=== PATIENT | male | born 1975 | race African-American/Black ===

== ENCOUNTER 2019-05-27 01:06 | Inpatient (IN) | payer MEDICAID ==
[~2019-05-27] VITALS: Ht 160 cm; Wt 63.4 kg
[2019-05-27] MEDS ORDERED: PLEASE ENTER ALLERGIES MC SCH (01:30)
[2019-05-27] MEDS ORDERED: MAALOX/HYOSCYAMINE/LIDOCAINE 45 ML BTL PO ONE (01:30)
--- NOTE | 2019-05-27 01:41 | NUR ---
[facility] CALLED [id number]
--- NOTE | 2019-05-27 01:45 | NUR ---
SECURITY CALLED [employer] AND THEY ARE ON THEIR WAY.
[2019-05-27] MEDS ORDERED: NITROGLYCERIN 0.4 MG BOTTLE (25 TABS) SL PRN ×2 (02:00→03:00)
--- NOTE | 2019-05-27 02:04 | NUR ---
PT BIBA FOR CP THAT RADIATES TO BACK. C N/V YESTERDAY. NONE TODAY. PT HAS HX OF GERD, STATES IT FEELS SIMILIAR. RATES EPIGASTRIC PAIN 03/11. SKIN W/D.
[2019-05-27] MEDS ORDERED: LEVE250T28 PO (02:10)
[2019-05-27] MEDS ORDERED: DIVA125T2 PO (02:10)
[2019-05-27] MEDS ORDERED: INSU100I42 SQ (02:12)
[2019-05-27 02:13] LABS: BASOPHILS # (AUTO) 0.04 x10^3/uL (0-0.1); BASOPHILS % (AUTO) 1 % (0-1); EOSINOPHILS % (AUTO) 0 % (1-7); LYMPHOCYTES # (AUTO) 2.27 x10^3/uL (1-3.4); LYMPHOCYTES % (AUTO) 44 % (22-44); MD NO; MEAN CORPUSCULAR HEMOGLOBIN 34.2 pg (27.5-34.5); MEAN CORPUSCULAR HGB CONC 32.3 g/dL (33.2-36.2); MEAN CORPUSCULAR VOLUME 105.8 fL (81-97); MEAN PLATELET VOLUME 8.3 fL (7.4-10.4); MONOCYTES # (AUTO) 0.38 x10^3/uL (0.2-0.8); MONOCYTES % (AUTO) 7 % (2-9); NEUTROPHILS # (AUTO) 2.51 x10^3/uL (1.8-6.8); NEUTROPHILS % (AUTO) 48 % (42-75); PLATELET COUNT 200 x10^3/uL (130-400); RED BLOOD COUNT 5.07 x10^6/uL (4.38-5.82); RED CELL DISTRIBUTION WIDTH 12.9 % (9.4-14.8)
[2019-05-27] MEDS ORDERED: INSU100I34 SQ (02:14)
[2019-05-27 02:15] LABS: ALANINE AMINOTRANSFERASE 28 U/L (12-78); ALBUMIN 3.9 g/dL (3.4-5.0); ANION GAP 12 mmol/L (5-15); CALCIUM 10.4 mg/dL (8.5-10.1); CHLORIDE 96 mmol/L (98-107); CREATININE 1.31 mg/dL (0.7-1.3)
[2019-05-27] MEDS ORDERED: CARB200T PO (02:16)
--- NOTE | 2019-05-27 02:16 | NUR ---
INCOMPLETE MED REC COMPLETED. PT UNSURE OF DOSAGES. ATTEMPTING SECOND IV. CARDS AT BS. PT AWARE OF PLAN FOR [employer]. PT VERBALIZES UNDERSTANDING.
[2019-05-27] MEDS ORDERED: MIDAZOLAM 1 MG/ML, 5ML ONE (02:17)
[2019-05-27] MEDS ORDERED: FENTANYL PF 100 MCG/2ML ONE (02:17)
[2019-05-27] MEDS ORDERED: VERAPAMIL 2.5 MG/ML, 2ML ONE (02:17)
[2019-05-27] MEDS ORDERED: TICAGRELOR 90 MG TABLET ONE (02:17)
[2019-05-27] MEDS ORDERED: BIVALIRUDIN 250 MG ONE (02:18)
[2019-05-27] MEDS ORDERED: LIDOCAINE 2%, 20ML ONE (02:18)
[2019-05-27] MEDS ORDERED: NITROGLYCERIN 5 MG/ML, 10ML ONE (02:18)
[2019-05-27] MEDS ORDERED: HEPARIN 1,000 UNITS/ML, 10ML ONE (02:18)
[2019-05-27 02:20] LABS: ALKALINE PHOSPHATASE 106 U/L (45-117); BILIRUBIN,TOTAL 0.5 mg/dL (0.2-1.0); TOTAL PROTEIN 8.1 g/dL (6.4-8.2); TROPONIN I < 0.015 ng/mL (0.000-0.045)
--- NOTE | 2019-05-27 02:22 | NUR ---
PT GIVEN 1 NTG SL IN ER S RELIEF. PT GIVEN 4 (81MG) ASA ENROUTE.
--- NOTE | 2019-05-27 02:23 | NUR ---
[employer] READY
--- NOTE | 2019-05-27 02:35 | NUR ---
PT TRANSPORTED TO [employer], REPORT AT BS.
[2019-05-27] MEDS ORDERED: ONDANSETRON ODT 4 MG PO PRN (03:00)
[2019-05-27] MEDS ORDERED: PROMETHAZINE 25 MG/ML, 1ML IM PRN (03:00)
[2019-05-27] MEDS ORDERED: ACETAMINOPHEN 325 MG TABLET PO PRN (03:00)
[2019-05-27] MEDS ORDERED: POLYETHYLENE GLYCOL 17 GM PACKET PO PRN (03:00)
[2019-05-27] MEDS ORDERED: DOCUSATE 100 MG CAPSULE PO PRN (03:00)
[2019-05-27] MEDS: NICOTINE 7 MG/24 HR PATCH.TD24 TD SCH (03:00)
[2019-05-27] MEDS ORDERED: hydrALAzine 20 MG/ML, 1ML IVPush PRN (03:00)
[2019-05-27] MEDS ORDERED: DIVALPROEX 125 MG TABLET.DR PO SCH (03:00)
[2019-05-27] MEDS ORDERED: ONDANSETRON 2MG/ML, 2ML IVPush PRN (03:00)
[2019-05-27] MEDS ORDERED: BISACODYL 10 MG SUPP PR PRN (03:00)
[2019-05-27 03:40] LABS: FREE T4 (FREE THYROXINE) 0.72 ng/dL (0.76-1.46)
[2019-05-27 03:44] LABS: HEMOGLOBIN A1C 9.1 % (4.2-6.3)
[2019-05-27 03:49] VITALS: BP 115/78
[2019-05-27] MEDS ORDERED: MAALOX/HYOSCYAMINE/LIDOCAINE 45 ML BTL PO SCH (04:00)
[2019-05-27] MEDS: SODIUM CHLORIDE 0.9% 1,000 ML IV SCH ×2 (05:12→15:48)
[2019-05-27] MEDS: OXYcodone IR 5MG TABLET PO PRN ×4 (05:32→22:17)
[2019-05-27] MEDS: PANTOPRAZOLE 40 MG IV IVPush SCH ×2 (05:33→16:46)
[2019-05-27 05:44] LABS: TROPONIN I < 0.015 ng/mL (0.000-0.045)
[2019-05-27] MEDS ORDERED: ASPIRIN 325 MG TABLET EC PO SCH (06:00)
[2019-05-27 07:14] VITALS: BP 116/75
[2019-05-27 08:06] LABS: TROPONIN I < 0.015 ng/mL (0.000-0.045)
[2019-05-27] MEDS: LEVETIRACETAM 500 MG TABLET PO SCH ×2 (09:01→21:08)
[2019-05-27] MEDS: CARBAMAZEPINE 200 MG TABLET PO SCH (09:01)
[2019-05-27] MEDS: morphine SULFATE 10 MG/ML, 1ML IVPush PRN ×2 (09:52→13:00)
[2019-05-27 12:29] VITALS: BP 124/77
[2019-05-27] MEDS ORDERED: OMNIPAQUE 350 MG/ML, 100ML BOTTLE ONE (13:12)
[2019-05-27] MEDS ORDERED: GLUCAGON 1 MG IM PRN (13:30)
[2019-05-27] MEDS ORDERED: DEXTROSE 50%, 50ML SYRINGE IVPush PRN (13:30)
[2019-05-27] MEDS ORDERED: DEXTROSE 4 GM TAB.CHEW PO PRN (13:30)
[2019-05-27 14:42] LABS: ANION GAP 29 mmol/L (5-15); CALCIUM 9.9 mg/dL (8.5-10.1); CHLORIDE 96 mmol/L (98-107); CREATININE 1.59 mg/dL (0.7-1.3)
[2019-05-27 14:45] LABS: O2 FLOW ROOM AIR L/min
[2019-05-27] MEDS ORDERED: REGULAR INSULIN 62.5 UNITS in SODIUM CHLORIDE 0.9% 249.375 ML IV PRN (15:00)
[2019-05-27] MEDS ORDERED: SODIUM CHLORIDE 0.9% 1,000ML IVBOLUS ONE (15:00)
[2019-05-27 15:14] LABS: ACETONE, SERUM Large (80mg/dL) mg/dL (Negative)
[2019-05-27 15:16] LABS: MEAN CORPUSCULAR HEMOGLOBIN 35.3 pg (27.5-34.5); MEAN CORPUSCULAR HGB CONC 32.3 g/dL (33.2-36.2); MEAN CORPUSCULAR VOLUME 109.1 fL (81-97); MEAN PLATELET VOLUME 9.3 fL (7.4-10.4); PLATELET COUNT 206 x10^3/uL (130-400); RED CELL DISTRIBUTION WIDTH 13.5 % (9.4-14.8)
[2019-05-27 15:18] LABS: BASOPHILS # (AUTO) 0.04 x10^3/uL (0-0.1); BASOPHILS % (AUTO) 0 % (0-1); EOSINOPHILS % (AUTO) 0 % (1-7); LYMPHOCYTES # (AUTO) 1.72 x10^3/uL (1-3.4); LYMPHOCYTES % (AUTO) 10 % (22-44); MD SCAN; MONOCYTES # (AUTO) 1.51 x10^3/uL (0.2-0.8); MONOCYTES % (AUTO) 9 % (2-9); NEUTROPHILS # (AUTO) 14.61 x10^3/uL (1.8-6.8); NEUTROPHILS % (AUTO) 82 % (42-75)
[2019-05-27 15:52] LABS: RAPID INFLUENZA A Negative (Negative); RAPID INFLUENZA B Negative (Negative)
[2019-05-27] MEDS ORDERED: SODIUM CHLORIDE 0.9% 1,000 ML IV SCH (16:00)
[2019-05-27] MEDS ORDERED: CEFTRIAXONE PMX 1GM/50ML 50 ML IV SCH (16:00)
[2019-05-27] MEDS ORDERED: INSULIN LISPRO 100 UNITS/ML, PEN SQ-INSULIN SCH (16:00)
[2019-05-27] MEDS: DOXYCYCLINE 100 MG in DEXTROSE 5% 250 ML IV SCH (17:24)
[2019-05-27] MEDS: D5%-0.45NACL+KCL 20MEQ 1,000 ML IV SCH (19:41)
[2019-05-27 20:43] LABS: ANION GAP 15 mmol/L (5-15); CALCIUM 8.5 mg/dL (8.5-10.1); CHLORIDE 108 mmol/L (98-107)
[2019-05-27] MEDS ORDERED: SODIUM CHLORIDE FLUSH 10ML SYR IVF SCH (21:00)
[2019-05-27 22:17] LABS: MICROSCOPIC NOT IND
[2019-05-27 22:18] LABS: AMPHETAMINE SCREEN, URINE Negative (Negative); BARBITURATE SCREEN, URINE Negative (Negative); BENZODIAZEPINE SCREEN, URINE Positive (Negative); CANNABINOID SCREEN, URINE Negative (Negative); COCAINE SCREEN, URINE Negative (Negative); METHADONE SCREEN, URINE Negative (Negative); OPIATE SCREEN, URINE Positive (Negative)
[2019-05-27 22:27] LABS: CULTURE INDICATED? NO
[2019-05-28 00:54] LABS: ANION GAP 5 mmol/L (5-15); CALCIUM 8.2 mg/dL (8.5-10.1); CHLORIDE 109 mmol/L (98-107); CREATININE 1.23 mg/dL (0.7-1.3)
[2019-05-28] MEDS: D5%-0.45NACL+KCL 20MEQ 1,000 ML IV SCH (03:21)
[2019-05-28] MEDS: PANTOPRAZOLE 40 MG IV IVPush SCH (04:20)
[2019-05-28] MEDS: OXYcodone IR 5MG TABLET PO PRN ×3 (04:20→20:16)
[2019-05-28] MEDS: DOXYCYCLINE 100 MG in DEXTROSE 5% 250 ML IV SCH (04:21)
[2019-05-28 04:48] LABS: BASOPHILS # (AUTO) 0.03 x10^3/uL (0-0.1); BASOPHILS % (AUTO) 0 % (0-1); EOSINOPHILS % (AUTO) 0 % (1-7); LYMPHOCYTES # (AUTO) 1.88 x10^3/uL (1-3.4); LYMPHOCYTES % (AUTO) 25 % (22-44); MD NO; MEAN CORPUSCULAR HGB CONC 32.9 g/dL (33.2-36.2); MEAN CORPUSCULAR VOLUME 106.4 fL (81-97); MEAN PLATELET VOLUME 8.7 fL (7.4-10.4); MONOCYTES # (AUTO) 0.61 x10^3/uL (0.2-0.8); MONOCYTES % (AUTO) 8 % (2-9); NEUTROPHILS # (AUTO) 4.93 x10^3/uL (1.8-6.8); NEUTROPHILS % (AUTO) 66 % (42-75); PLATELET COUNT 165 x10^3/uL (130-400); RED BLOOD COUNT 4.26 x10^6/uL (4.38-5.82); RED CELL DISTRIBUTION WIDTH 12.8 % (9.4-14.8)
[2019-05-28 04:59] LABS: ALBUMIN 3.2 g/dL (3.4-5.0); ANION GAP 6 mmol/L (5-15); CALCIUM 8.2 mg/dL (8.5-10.1); CHLORIDE 108 mmol/L (98-107)
[2019-05-28 05:00] VITALS: BP 122/72
[2019-05-28 05:04] LABS: ALANINE AMINOTRANSFERASE 27 U/L (12-78); ALKALINE PHOSPHATASE 88 U/L (45-117); BILIRUBIN,TOTAL 0.3 mg/dL (0.2-1.0); CHOL/HDL RATIO 2.9; CHOLESTEROL, TOTAL 238 mg/dL (140-239); CREATININE 1.41 mg/dL (0.7-1.3); HDL CHOL % 34 % (26-37); HDL CHOLESTEROL (DIRECT) 81 mg/dL (40-60); LDL CHOLESTEROL,CALCULATED 135 mg/dL (54-169); LDL/HDL RATIO 1.7 (0.5-3.0); TOTAL PROTEIN 6.5 g/dL (6.4-8.2); TRIGLYCERIDES 109 mg/dL (50-200); VLDL CHOLESTEROL 22 mg/dL (0-25)
[2019-05-28] MEDS: INSULIN LISPRO 100 UNITS/ML, PEN SQ-INSULIN SCH ×4 (07:00→20:17)
[2019-05-28] MEDS: CARBAMAZEPINE 200 MG TABLET PO SCH (08:37)
[2019-05-28] MEDS: LEVETIRACETAM 500 MG TABLET PO SCH ×2 (08:37→20:15)
[2019-05-28] MEDS: PANTOPROZOLE 40MG TABLET PO SCH ×2 (08:38→16:08)
[2019-05-28] MEDS: INSULIN GLARGINE 100 UNITS/ML, PEN SQ-INSULIN SCH ×3 (08:45→20:18)
[2019-05-28] MEDS: NICOTINE 7 MG/24 HR PATCH.TD24 TD SCH (08:53)
[2019-05-28 09:49] LABS: ANION GAP 4 mmol/L (5-15); CALCIUM 7.8 mg/dL (8.5-10.1); CHLORIDE 110 mmol/L (98-107); CREATININE 1.28 mg/dL (0.7-1.3)
[2019-05-28] MEDS: SODIUM CHLORIDE 0.9% 1,000 ML IV SCH ×2 (09:59→21:58)
[2019-05-28] MEDS ORDERED: ERGOCALCIFEROL 50,000 UNIT CAPSULE PO SCH (13:30)
[2019-05-28 15:26] VITALS: BP 114/78
[2019-05-28 16:38] VITALS: BP 120/80
[2019-05-28 18:47] VITALS: BP 104/71
[2019-05-28] MEDS ORDERED: BENZONATATE 100 MG CAPSULE PO PRN (22:00)
[2019-05-29 00:12] VITALS: BP 125/83
[2019-05-29] MEDS ORDERED: MAALOX/HYOSCYAMINE/LIDOCAINE 45 ML BTL PO ONE (01:00)
[2019-05-29 02:00] VITALS: BP 125/83
[2019-05-29] MEDS: PANTOPROZOLE 40MG TABLET PO SCH ×2 (06:17→08:24)
[2019-05-29 07:41] LABS: ANION GAP 6 mmol/L (5-15); CALCIUM 8.2 mg/dL (8.5-10.1); CHLORIDE 112 mmol/L (98-107)
[2019-05-29 07:42] VITALS: BP 105/65
[2019-05-29 07:42] LABS: CREATININE 0.94 mg/dL (0.7-1.3)
[2019-05-29] MEDS: INSULIN LISPRO 100 UNITS/ML, PEN SQ-INSULIN SCH (08:23)
[2019-05-29] MEDS: CARBAMAZEPINE 200 MG TABLET PO SCH (08:24)
[2019-05-29] MEDS: LEVETIRACETAM 500 MG TABLET PO SCH (08:24)
[2019-05-29] MEDS: INSULIN GLARGINE 100 UNITS/ML, PEN SQ-INSULIN SCH (08:25)
[2019-05-29] MEDS: SODIUM CHLORIDE 0.9% 1,000 ML IV SCH (08:26)
[2019-05-29] MEDS: NICOTINE 7 MG/24 HR PATCH.TD24 TD SCH (08:26)
[2019-05-29] MEDS ORDERED: CHOLECALCIFEROL 400 UNITS TABLET PO SCH (09:00)
== END 2019-05-29 10:45 | disposition left against medical advice (07) | DRG 192 ==
LOC: ED 01:49 → EDIP 01:54 → UNDOADMIN 01:54 → ED 02:07 → EDIP 02:55 → 5SO 03:21 → CCU 15:36 → 4EST 05-28 14:25
PROVIDERS: ADMIT Internal Medicine; ATTEND Family Medicine
PROC: 4A023N7 Measurement of Cardiac Sampling and Pressure, Left Heart, Percutaneous Approach (ICD-10-PCS; principal; 2019-05-27)
PROC: B211YZZ Fluoroscopy of Multiple Coronary Arteries using Other Contrast (ICD-10-PCS; 2019-05-27)
PROC: B215YZZ Fluoroscopy of Left Heart using Other Contrast (ICD-10-PCS; 2019-05-27)
DX: R07.89 Other chest pain (principal); N17.0 Acute kidney failure with tubular necrosis; E11.10 Type 2 diabetes mellitus with ketoacidosis without coma; K21.9 Gastro-esophageal reflux disease without esophagitis; G40.909 Epilepsy, unspecified, not intractable, without status epilepticus; D75.89 Other specified diseases of blood and blood-forming organs; E03.9 Hypothyroidism, unspecified; E55.9 Vitamin D deficiency, unspecified; F17.210 Nicotine dependence, cigarettes, uncomplicated; Z79.4 Long term (current) use of insulin; Z88.8 Allergy status to other drugs, medicaments and biological substances; Z88.0 Allergy status to penicillin; Z53.29 Procedure and treatment not carried out because of patient's decision for other reasons
CPT/HCPCS: 36415; 36600; 87400; 93458; 99285; J3490; 71045; 71275; 80048; 80053; 80061; 80307; 81003; 82010; 82306; 82607; 82803; 82962; 83036; 83690; 83735; 83970; 84439; 84443; 84484; 85025; 87040; 87081; 93005; 93306; 99156; 99157; C1760; C1769; C1894; G0378; J0583; J0696; J1644; J2250; J2405; J3010; J7060; Q9967; C9113; J1815; J2270; J3480; J7030